=== PATIENT | female | born 1955 | race American Indian/Alaskan Native ===

== ENCOUNTER 2018-09-27 08:50 | Emergency (ER) | payer BC, OTHER ==
[2018-09-27 09:10] VITALS: BP 190/77
[2018-09-27] MEDS ORDERED: IBUPROFEN PO ONE (09:37)
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
== END 2018-09-27 11:31 | disposition home or self-care (01) ==
LOC: ED 08:50
DX: R07.89 Other chest pain (principal); I10 Essential (primary) hypertension; V89.2XXA Person injured in unspecified motor-vehicle accident, traffic, initial encounter; Y93.89 Activity, other specified; Y92.488 Other paved roadways as the place of occurrence of the external cause; Y99.8 Other external cause status
CPT/HCPCS: 71046; 93005; 93010; 99283